=== PATIENT | female | born 1970 | race African-American/Black ===

== ENCOUNTER 2016-11-24 20:16 | Emergency (ER) | payer OTHER | END 2016-11-24 22:53 | disposition home or self-care (01) | LOC: ER 20:16 | DX: M25.541 Pain in joints of right hand (principal); Z88.8 Allergy status to other drugs, medicaments and biological substances | CPT/HCPCS: 73140-RT; 99283 ==

== ENCOUNTER 2016-12-29 18:15 | Emergency (ER) | payer OTHER | END 2016-12-29 18:59 | disposition home or self-care (01) | LOC: ER 18:15 | DX: M25.561 Pain in right knee (principal); F17.200 Nicotine dependence, unspecified, uncomplicated; Z88.1 Allergy status to other antibiotic agents; Z88.8 Allergy status to other drugs, medicaments and biological substances | CPT/HCPCS: 73560-LT; 99283 ==